=== PATIENT | male | born 1990 | race Native Hawaiian/Other Pacific Islander ===

== ENCOUNTER 2020-11-14 12:29 | Outpatient (CLI) | payer OTHER ==
[2020-11-14 13:04] LABS: PLATELET COUNT 249 K/uL (142-355)
[2020-11-14 13:30] LABS: POTASSIUM 3.9 mmol/L (3.6-5.2)
== END 2020-11-14 21:10 | disposition home or self-care (01) ==
LOC: LABW 12:29
PROVIDERS: ATTEND Nurse Practitioner Family
DX: Z79.899 Other long term (current) drug therapy (principal); L40.0 Psoriasis vulgaris
CPT/HCPCS: 36415; 80053; 80074; 85027; 86480